=== PATIENT | female | born 1935 | race Caucasian/White ===

== ENCOUNTER 2016-12-09 10:09 | Inpatient (IN) | payer MEDICAID, MEDICARE ==
[~2016-12-09] VITALS: Ht 154.9 cm; Wt 53.5 kg
[2016-12-09] MEDS ORDERED: SODIUM CHLORIDE 0.9% 1,000 ML IV ONE ×2 (10:43→16:00)
[2016-12-09 12:20] LABS: Basophils # (auto) 0 uL; Basophils % (auto) 0.3 % (0.0-2.0); CONDITION Y; Eosinophils # (auto) 0 uL; Eosinophils % (auto) 0.2 % (0.0-7.0); Hematocrit 37.8 % (36.0-46.0); Hemoglobin 12.9 g/dL (12.2-16.2); Lymphocytes # (auto) 0.7 uL; Lymphocytes % (auto) 8.8 % (10.0-50.0); Mean Corpuscular Hemoglobin 31.1 pg (28.0-32.0); Mean Corpuscular Volume 91.7 fL (80.0-100.0); Monocytes # (auto) 0.3 uL; Monocytes % (auto) 3.5 % (0.0-12.0); Neutrophils # (auto) 7.3 uL; Neutrophils % (auto) 87.2 % (37.0-80.0); Platelet Count (auto) 168 10^3/uL (140-450); Red Cell Distribution Width 14.8 % (11.6-16.0); White Blood Cell 8.4 10^3/uL (4.4-10.8)
[2016-12-09 12:39] LABS: INR 1.16 (0.9-1.15); Partial Thromboplastin Time 26.1 sec (22.64-33.71)
[2016-12-09 12:43] LABS: Prothrombin Time 12.7 sec (9.37-12.3)
[2016-12-09 12:58] LABS: Albumin 3.1 g/dL (3.4-5.0); BUN/Creatinine Ratio 11.9; Bilirubin, Total 0.4 mg/dL (0.2-1.0); Magnesium 2.1 mg/dL (1.6-2.6); Potassium 3.6 mmol/L (3.5-5.1); Total Protein 6.2 g/dL (6.4-8.2)
[2016-12-09] MEDS ORDERED: ENOXAPARIN SOD 60 MG/0.6 ML SYRINGE SC ONE (13:00)
[2016-12-09 13:01] LABS: B-Type Natriuretic Peptide 125.72 pg/mL (0-100)
[2016-12-09 13:02] LABS: Temperature: 22.5 C (20.0-25.0)
[2016-12-09] MEDS ORDERED: IOHEXOL 350 MG/ML 100ML IJ ONE (15:55)
[2016-12-09] MEDS ORDERED: NITROGLYCERIN 0.4 MG SL TAB SL PRN (16:15)
[2016-12-09] MEDS ORDERED: HYDROcodone-ACET 5/325MG TAB PO PRN (16:15)
[2016-12-09] MEDS ORDERED: LORazepam 0.5 MG TAB PO PRN (16:15)
[2016-12-09] MEDS ORDERED: ACETAMINOPHEN 500 MG TAB PO PRN (16:15)
[2016-12-09] MEDS ORDERED: PROMETHAZINE HCL 25 MG/ML 1ML IV PRN (16:15)
[2016-12-09] MEDS ORDERED: DEXTROSE (50%) 50ML SYRG IV PRN (16:15)
[2016-12-09] MEDS ORDERED: LACTULOSE 20Gm/30ML SOLN PO PRN (16:15)
[2016-12-09] MEDS ORDERED: MORPHINE SULF INJ 2 MG/ML SYRINGE 1ML IV PRN ×2 (16:15)
[2016-12-09] MEDS ORDERED: ASPirin 81 mg TAB PO ONE (16:40)
[2016-12-09 18:16] LABS: Temperature: 23.1 C (20.0-25.0)
[2016-12-09] MEDS: ACCU-CHEK COMFORT CURVE STRIP VI SCH (18:20)
[2016-12-09 22:00] VITALS: BP 138/70
[2016-12-09 22:50] VITALS: BP 138/70
[2016-12-09] MEDS: TEMAZEPAM 15 MG CAP PO PRN (23:39)
[2016-12-10] MEDS ORDERED: MEMA10TA PO (02:11)
[2016-12-10] MEDS ORDERED: DONE10TA37 PO (02:12)
[2016-12-10] MEDS ORDERED: AML5T PO (02:14)
[2016-12-10] MEDS ORDERED: LOPE2CAP PO (02:15)
[2016-12-10 05:00] VITALS: BP 120/71
[2016-12-10] MEDS: ACCU-CHEK COMFORT CURVE STRIP VI SCH ×5 (06:00→23:51)
[2016-12-10 08:00] VITALS: BP 132/57
[2016-12-10 08:53] VITALS: BP 132/57
[2016-12-10] MEDS: ASPirin 81 mg TAB PO SCH (09:19)
[2016-12-10] MEDS: ENOXAPARIN SOD 40 MG/0.4 ML SYRINGE SC SCH (09:19)
[2016-12-10 11:44] VITALS: BP 126/63
[2016-12-10 17:43] VITALS: BP 113/59
[2016-12-10] MEDS: TEMAZEPAM 15 MG CAP PO PRN (21:27)
[2016-12-10 22:07] VITALS: BP 108/53
[2016-12-11 05:04] VITALS: BP 110/59
[2016-12-11] MEDS: ACCU-CHEK COMFORT CURVE STRIP VI SCH (06:18)
[2016-12-11 06:26] LABS: Basophils # (auto) 0 uL; Basophils % (auto) 0.5 % (0.0-2.0); CONDITION Y; Eosinophils # (auto) 0.1 uL; Eosinophils % (auto) 2.8 % (0.0-7.0); Hematocrit 35.4 % (36.0-46.0); Lymphocytes # (auto) 1.2 uL; Lymphocytes % (auto) 26.9 % (10.0-50.0); Mean Corpuscular Hemoglobin 31.2 pg (28.0-32.0); Mean Corpuscular Hgb Conc. 33.9 g/dL (32.0-36.0); Mean Corpuscular Volume 91.9 fL (80.0-100.0); Mean Platelet Volume 9.8 fL (7.4-10.4); Monocytes # (auto) 0.4 uL; Monocytes % (auto) 8.5 % (0.0-12.0); Neutrophils # (auto) 2.8 uL; Neutrophils % (auto) 61.3 % (37.0-80.0); Platelet Count (auto) 139 10^3/uL (140-450); Red Cell Distribution Width 14.7 % (11.6-16.0); White Blood Cell 4.5 10^3/uL (4.4-10.8)
[2016-12-11 06:35] LABS: BUN/Creatinine Ratio 18.8; Calcium 8.3 mg/dL (8.5-10.1); Magnesium 2.1 mg/dL (1.6-2.6); Phosphorus 3.1 mg/dL (2.5-4.90); Potassium 3.6 mmol/L (3.5-5.1)
[2016-12-11 08:46] VITALS: BP 121/61
[2016-12-11] MEDS: ASPirin 81 mg TAB PO SCH (09:35)
[2016-12-11] MEDS: ENOXAPARIN SOD 40 MG/0.4 ML SYRINGE SC SCH (09:36)
== END 2016-12-11 11:45 | disposition home or self-care (01) | DRG 74 ==
LOC: ER 10:20 → TELE 10:21 → TELE-CENTR 21:34
PROVIDERS: ADMIT Internal Medicine; ATTEND Nurse Practitioner Acute Care
DX: G90.8 Other disorders of autonomic nervous system (principal); K52.1 Toxic gastroenteritis and colitis; F03.90 Unspecified dementia, unspecified severity, without behavioral disturbance, psychotic disturbance, mood disturbance, and anxiety; F32.9 Major depressive disorder, single episode, unspecified; I11.0 Hypertensive heart disease with heart failure; I50.9 Heart failure, unspecified; R29.6 Repeated falls; Z96.652 Presence of left artificial knee joint; I95.9 Hypotension, unspecified; T50.995A Adverse effect of other drugs, medicaments and biological substances, initial encounter; Y92.89 Other specified places as the place of occurrence of the external cause; Z86.73 Personal history of transient ischemic attack (TIA), and cerebral infarction without residual deficits
CPT/HCPCS: 36415; 51702; 70450; 71010; 71275; 80048; 80053; 82550; 82607; 82746; 82962; 83036; 83735; 83880; 84100; 84443; 84484; 85025; 85379; 85610; 85652; 85730; 87040; 93005; 93306; 93970; 96360; 96361; 96372; 99291